=== PATIENT | female | born 1935 | race Caucasian/White ===

== ENCOUNTER 2017-12-09 18:13 | Emergency (ER) | payer OTHER ==
[~2017-12-09] VITALS: Ht 165.1 cm; Wt 83.5 kg
[~2017-12-09 18:13] MED LIST: ASPI81EC98 PO; ATEN50TA2 PO; FAMO-90 PO; FLUT0.0548 NS; FURO-570 PO; ISOS10TA9 PO; LEVO100P PO; MONT10TA35 PO; PHEN100C4 PO; POTA8TER12 PO; SIMV20TA1 PO; VALS160T2 PO
[2017-12-09 18:29] VITALS: BP 161/77
--- NOTE | 2017-12-09 19:27 | NUR ---
PT TAKEN TO BED 1
--- NOTE | 2017-12-09 19:30 | NUR ---
PATIENT PRESENTS TO ED WITH ABD PAIN . PT STATES I HAVE PAIN ON MY RIGHT SIDE. DENIES N/V/D; SKIN IS PINK/WARM/DRY; AAOX4 WITH EVEN AND STEADY GAIT; LUNGS CLEAR BL; HR EVEN AND REGULAR; PT DENIES ANY FEVER, CP, SOB, OR COUGH AT THIS TIME; PATIENT STATES PAIN OF 5/10 AT THIS TIME; VSS; PATIENT POSITIONED FOR COMFORT; HOB ELEVATED; BEDRAILS UP X2; BED DOWN. ER MD MADE AWARE OF PT STATUS.
[2017-12-09 20:34] LABS: BASOPHILS # (AUTO) 0.1 K/uL (0.00-0.22); BASOPHILS % (AUTO) 1.9 % (0.0-2.0); EOSINOPHILS # (AUTO) 0.3 K/uL (0-0.4); EOSINOPHILS % (AUTO) 4.6 % (0.0-4.0); HEMATOCRIT 35.3 % (36-48); LYMPHOCYTES # (AUTO) 2.2 K/uL (2.5-16.5); LYMPHOCYTES % (AUTO) 30.3 % (20.5-51.1); MEAN CORPUSCULAR HEMOGLOBIN 31 pg (27-31); MEAN CORPUSCULAR HGB CONC 34 g/dL (33-37); MEAN CORPUSCULAR VOLUME 91 fL (80-94); MONOCYTES # (AUTO) 0.6 K/uL (0.8-1.0); MONOCYTES % (AUTO) 7.9 % (1.7-9.3); NEUTROPHILS # (AUTO) 3.9 K/uL (1.8-7.7); NEUTROPHILS % (AUTO) 55.3 % (42.2-75.2); PLATELET COUNT (AUTO) 236 K/uL (140-450); RED BLOOD CELL COUNT(AUTO) 3.89 MIL/uL (4.20-5.40); RED CELL DISTRIBUTION WIDTH 12.7 % (11.6-13.7); WHITE BLOOD COUNT (AUTO) 7.1 K/uL (4.8-10.8)
[2017-12-09 20:36] LABS: APPEARANCE,URINE CLEAR (CLEAR); BILIRUBIN,URINE NEGATIVE (NEGATIVE); BLOOD, URINE NEGATIVE (NEGATIVE); COLOR,URINE YELLOW (YELLOW); LEUKOCYTE ESTERASE ,URINE 1+ (NEGATIVE); NITRITE, URINE NEGATIVE (NEGATIVE); UGLUCOSE NEGATIVE (NEGATIVE)
[2017-12-09 20:46] LABS: RBC,URINE 0-5 (RARE) /HPF (0-5)
[2017-12-09 20:49] LABS: ANION GAP 15.2 (8-16); CARBON DIOXIDE 28.7 mmol/L (21-32); CHLORIDE 102 mmol/L (98-107); CREATININE 1.4 mg/dL (0.6-1.3); GLUCOSE 96 mg/dL (74-106); POTASSIUM 3.9 mmol/L (3.5-5.1); SODIUM SERUM 142 mmol/L (136-145); UREA NITROGEN, BLOOD 37 mg/dL (7-18)
[2017-12-09 20:57] LABS: ALBUMIN 4.2 g/dL (3.4-5.0); ASPARTATE AMINOTRANSFERASE 17 U/L (15-37); LIPASE 366 U/L (73-393); TOTAL BILIRUBIN 0.3 mg/dL (0.0-1.0)
[2017-12-09] MEDS ORDERED: KETOROLAC 60 MG/2 ML VIAL IM ONE (21:45)
[2017-12-09 22:05] VITALS: BP 145/92
--- NOTE | 2017-12-09 22:05 | NUR ---
Patient discharged with v/s stable. Written and verbal after care instructions given and explained. Patient alert, oriented and verbalized understanding of instructions. Ambulatory with steady gait. All questions addressed prior to discharge. ID band removed. Patient advised to follow up with PMD. Rx of CIPRO 500MG AND MOTRIN 800MG given. Patient educated on indication of medication including possible reaction and side effects. Opportunity to ask questions provided and answered.
== END 2017-12-09 22:05 | disposition home or self-care (01) ==
LOC: MED 18:13
DX: N39.0 Urinary tract infection, site not specified (principal); I11.0 Hypertensive heart disease with heart failure; I50.9 Heart failure, unspecified; Z85.841 Personal history of malignant neoplasm of brain; Z88.5 Allergy status to narcotic agent
CPT/HCPCS: 36415; 74176; 80053; 81001; 83690; 85025; 87086; 96372; 99285; J1885

== ENCOUNTER 2018-04-04 23:44 | Emergency (ER) | payer OTHER ==
[~2018-04-04] VITALS: Ht 160 cm; Wt 85.7 kg
--- NOTE | 2018-04-04 23:47 | NUR ---
Patient transferred to bed 4 via personal wheelchair by family. RN evaluating patient at bedside.
--- NOTE | 2018-04-04 23:50 | NUR ---
PATIENT PRESENTS TO ED WITH ABDOMINAL PAIN X1 DAY. PT STATES N/V/D; SKIN IS PINK/WARM/DRY; AAOX3 WITH EVEN AND STEADY GAIT; LUNGS CLEAR BL; HR EVEN AND REGULAR; PT DENIES ANY FEVER, SOB, OR COUGH AT THIS TIME; PATIENT STATES PAIN OF 7/10 AT THIS TIME; VSS; PATIENT POSITIONED FOR COMFORT; HOB ELEVATED; BEDRAILS UP X1; BED DOWN. ER MD MADE AWARE OF PT STATUS.
[2018-04-04 23:58] VITALS: BP 149/58
--- NOTE | 2018-04-04 23:58 | NUR ---
Dr. Brown evaluating patient at bedside.
[2018-04-05] MEDS ORDERED: ONDANSETRON 4 MG/2 ML VIAL IVP ONE (00:05)
[2018-04-05] MEDS ORDERED: NACL 0.9% 1,000 ML IV ONE (00:05)
[2018-04-05] MEDS ORDERED: HYDR10TA1 PO (00:13)
[2018-04-05] MEDS ORDERED: CARV6.25 PO (00:13)
[2018-04-05] MEDS ORDERED: TRI48 PO (00:13)
[2018-04-05] MEDS ORDERED: ACET-2619 PO (00:13)
[2018-04-05] MEDS ORDERED: AMLO5TAB PO (00:13)
[2018-04-05 00:24] LABS: HEMATOCRIT 35.3 % (36-48); HEMOGLOBIN 12.3 g/dL (12.0-16.0); MEAN CORPUSCULAR HEMOGLOBIN 31 pg (27-31); MEAN CORPUSCULAR HGB CONC 35 g/dL (33-37); MEAN CORPUSCULAR VOLUME 88.4 fL (80-94); PLATELET COUNT (AUTO) 209 K/uL (140-450); RED BLOOD CELL COUNT(AUTO) 3.99 MIL/uL (4.20-5.40); RED CELL DISTRIBUTION WIDTH 13.3 % (11.6-13.7); WHITE BLOOD COUNT (AUTO) 7.6 K/uL (4.8-10.8)
[2018-04-05 00:32] LABS: ANION GAP 10.6 (8-16); CARBON DIOXIDE 29.4 mmol/L (21-32); CHLORIDE 97 mmol/L (98-107); CREATININE 1.3 mg/dL (0.6-1.3); GLUCOSE 99 mg/dL (74-106); SODIUM SERUM 133 mmol/L (136-145); UREA NITROGEN, BLOOD 27 mg/dL (7-18)
[2018-04-05 00:38] LABS: EOSINOPHILS % (MANUAL) 2 % (0-4); LYMPHOCYTES % (MANUAL) 9 % (20-46); MONOCYTES % (MANUAL) 10 % (5-12)
[2018-04-05 00:39] LABS: ASPARTATE AMINOTRANSFERASE 16 U/L (15-37); LIPASE 343 U/L (73-393); TOTAL BILIRUBIN 0.4 mg/dL (0.0-1.0)
[2018-04-05 00:52] LABS: APPEARANCE,URINE CLEAR (CLEAR); BILIRUBIN,URINE NEGATIVE (NEGATIVE); BLOOD, URINE 2+ (NEGATIVE); COLOR,URINE YELLOW (YELLOW); LEUKOCYTE ESTERASE ,URINE NEGATIVE (NEGATIVE); NITRITE, URINE NEGATIVE (NEGATIVE); PH,URINE 5.5 (5.0-9.0); UGLUCOSE NEGATIVE (NEGATIVE)
--- NOTE | 2018-04-05 00:54 | NUR ---
Patient taken to CT scan via gurney by marquita. Accompanied by family.
[2018-04-05 01:06] LABS: RBC,URINE 3-10 (FEW) /HPF (0-5); WBC,URINE 0-5 (RARE) /HPF (0-5)
[2018-04-05 03:20] VITALS: BP 137/63
== END 2018-04-05 03:19 | disposition home or self-care (01) ==
LOC: MED 23:44
DX: A08.4 Viral intestinal infection, unspecified (principal); E87.6 Hypokalemia; I11.0 Hypertensive heart disease with heart failure; I50.9 Heart failure, unspecified; Z79.899 Other long term (current) drug therapy; Z88.6 Allergy status to analgesic agent
CPT/HCPCS: 36415; 74176; 80053; 81001; 83605; 83690; 85025; 87040; 96361; 96374; 99285; J2405; J7030

== ENCOUNTER 2018-04-11 16:28 | Inpatient (IN) | payer OTHER ==
[~2018-04-11] VITALS: Ht 157.5 cm; Wt 86.2 kg
[~2018-04-11 16:28] MED LIST changes: +ACET-2619 PO; +AMLO5TAB PO; +CARV6.25 PO; +HYDR10TA1 PO; +TRI48 PO
[2018-04-11 16:42] VITALS: BP 141/76
--- NOTE | 2018-04-11 16:50 | NUR ---
PATIENT ASSISTED TO BED 3.
--- NOTE | 2018-04-11 16:58 | NUR ---
PT BIB FAMILY FOR C/O N/V FOR TWO WEEKS. WAS SEEN HERE TWO WEEKS AGO FOR SAME THING AND DC'D FOR VIRAL GASTROENTERITIS. PT REPORTS SYMPTOMS HAVE NOT SUBSIDED, CONTINUES TO HAVE N/V AND PERIODIC DIARRHEA. DENIES SOB, CP OR DIZZINESS. PT PLACED ON ALL MONITORS, VSS. NAD NOTED/STATED OTHERWISE. PENDING MD ROCK
[2018-04-11] MEDS ORDERED: NACL 0.9% 1,000 ML IV ONE (17:40)
[2018-04-11] MEDS ORDERED: ONDANSETRON 4 MG/2 ML VIAL IVP ONE (17:40)
[2018-04-11 18:04] LABS: BASOPHILS % (AUTO) 0.7 % (0.0-2.0); EOSINOPHILS # (AUTO) 0.4 K/uL (0-0.4); EOSINOPHILS % (AUTO) 6.2 % (0.0-4.0); HEMATOCRIT 32.1 % (36-48); HEMOGLOBIN 10.9 g/dL (12.0-16.0); LYMPHOCYTES # (AUTO) 1.6 K/uL (2.5-16.5); LYMPHOCYTES % (AUTO) 23.1 % (20.5-51.1); MEAN CORPUSCULAR HEMOGLOBIN 30 pg (27-31); MEAN CORPUSCULAR HGB CONC 34 g/dL (33-37); MEAN CORPUSCULAR VOLUME 89.6 fL (80-94); MONOCYTES # (AUTO) 0.7 K/uL (0.8-1.0); MONOCYTES % (AUTO) 10.9 % (1.7-9.3); NEUTROPHILS % (AUTO) 59.1 % (42.2-75.2); PLATELET COUNT (AUTO) 248 K/uL (140-450); RED BLOOD CELL COUNT(AUTO) 3.59 MIL/uL (4.20-5.40); RED CELL DISTRIBUTION WIDTH 13.2 % (11.6-13.7); WHITE BLOOD COUNT (AUTO) 6.8 K/uL (4.8-10.8)
[2018-04-11 18:27] LABS: ALBUMIN 3.7 g/dL (3.4-5.0); ANION GAP 9.9 (8-16); ASPARTATE AMINOTRANSFERASE 18 U/L (15-37); CARBON DIOXIDE 28.9 mmol/L (21-32); CHLORIDE 89 mmol/L (98-107); GLUCOSE 101 mg/dL (74-106); POTASSIUM 4.8 mmol/L (3.5-5.1); TOTAL BILIRUBIN 0.3 mg/dL (0.0-1.0); UREA NITROGEN, BLOOD 16 mg/dL (7-18)
[2018-04-11 18:28] LABS: SODIUM SERUM 125 mmol/L (136-145)
--- NOTE | 2018-04-11 18:46 | NUR ---
Patient appears to be resting comfortably in bed. Vital Signs within normal limits. Respirations even and unlabored.
[2018-04-11] MEDS ORDERED: ONDANSETRON 4 MG/2 ML VIAL IM/IVP PRN (18:50)
[2018-04-11] MEDS ORDERED: LORazepam 2 MG/ML VIAL IM/IVP PRN (18:50)
[2018-04-11] MEDS ORDERED: ZOLPIDEM 5 MG TAB PO PRN (18:50)
[2018-04-11] MEDS ORDERED: DOCUSATE SODIUM 100 MG GELCAP PO PRN (18:50)
[2018-04-11] MEDS ORDERED: ACETAMINOPHEN 325 MG TAB PO PRN (18:50)
[2018-04-11] MEDS ORDERED: NAPROXEN 500 MG TAB PO PRN (19:00)
[2018-04-11] MEDS ORDERED: traMADol 50 MG TAB PO PRN (19:00)
--- NOTE | 2018-04-11 19:12 | NUR ---
RECEIVED REPORT FROM AM SHIFT, PT IS LAYING IN BED, FAMILY AT BEDSIDE, VSS, WILL CONTINUE TO MONITOR, PER REPORT WAITING FOR BED PLACEMENT ON FLOOR.
--- NOTE | 2018-04-11 19:50 | NUR ---
PT ARRIVED VIA GURNEY TO UNIT. RECEIVED REPORT STEAMBOAT INSPECTOR FOR CONTINUITY OF CARE. PT IS A/OX4, ON 2L O2 VIA NASAL CANNULA. PT IS ABLE TO MAKE NEEDS KNOWN, ABLE TO FOLLOW COMMANDS. RESPIRATIONS EVEN AND UNLABORED AT THE MOMENT. PT SKIN IS INTACT. PT HAS 22G IV TO RIGHT HAND, ASYMPTOMATIC, INTACT AND PATENT. PT AMBULATES WITH WALKER BUT IS VERY WEAK AT THE MOMENT AND GAIT IS UNSTEADY. DISCUSSED PLAN OF CARE WITH PT, PT VERBALIZED UNDERSTANDING. OBTAINED MRSA SWAB AND SENT TO LAB. VITAL SIGNS WITHIN NORMAL LIMITS. PT STABLE, NO SIGNS OF DISTRESS NOTED AT THIS TIME. BED IN LOWEST POSITION, BED ALARM ON. CALL LIGHT WITHIN REACH, WILL CONTINUE TO MONITOR.
--- NOTE | 2018-04-11 19:50 | NUR ---
Patient will be admitted to care of DR. GUTIERREZ. Admited to TELE. Will go to room 119-B. Belongings list completed. Report to KATE.
[2018-04-11 19:53] LABS: FREE T4 (FREE THYROXINE) 0.58 ng/dL (0.76-1.46); MAGNESIUM 2.4 mg/dL (1.8-2.4); PHOSPHORUS 3.7 mg/dL (2.5-4.9); THYROID STIMULATING HORMONE 1.33 uIU/mL (0.34-3.74)
[2018-04-11 20:10] LABS: APPEARANCE,URINE CLEAR (CLEAR); BILIRUBIN,URINE NEGATIVE (NEGATIVE); BLOOD, URINE NEGATIVE (NEGATIVE); COLOR,URINE YELLOW (YELLOW); LEUKOCYTE ESTERASE ,URINE NEGATIVE (NEGATIVE); NITRITE, URINE NEGATIVE (NEGATIVE); PH,URINE 8.5 (5.0-9.0); UGLUCOSE NEGATIVE (NEGATIVE)
[2018-04-11] MEDS: NACL 0.9% 1,000 ML IV SCH (20:10)
[2018-04-11 21:00] VITALS: BP 151/56
[2018-04-11] MEDS: SIMVASTATIN 20 MG TAB PO SCH (21:00)
[2018-04-11] MEDS: ISOSORBIDE DINITRATE 10 MG TAB PO SCH (21:00)
[2018-04-11] MEDS: FAMOTIDINE 20 MG TAB PO SCH (21:00)
[2018-04-11] MEDS ORDERED: DICYCLOMINE HCL LIQUID 20 MG, ALUMINUM HYD/MAG/SIMETHICONE 30 ML, LIDOCAINE VISCOUS 2% ... PO SCH ×3 (21:30)
[2018-04-11] MEDS: ALBUTEROL SULFATE/IPRATROPIU 3 ML SOL IH PRN (21:53)
[2018-04-11] MEDS ORDERED: CARVEDILOL 6.25 MG TAB PO SCH ×2 (22:00)
[2018-04-11] MEDS ORDERED: LEVOFLOXACIN 500 MG/D5W PREMIX 100 ML IV SCH (22:00)
[2018-04-11] MEDS ORDERED: LIDOCAINE VISCOUS 2% 20 ML UDC ONE (22:12)
[2018-04-11] MEDS ORDERED: ALUMINUM HYD/MAG/SIMETHICONE 30 ML UDC ONE ×2 (22:12→22:16)
[2018-04-11] MEDS ORDERED: DICYCLOMINE HCL LIQUID 10 MG/5 ML UDC ONE (22:16)
--- NOTE | 2018-04-11 22:35 | NUR ---
PT STATES SHE TOOK HER NIGHT TIME MEDICATIONS ALREADY AND DOES NOT NEED THEM NOW. STARTED INFUSING LEVAQUIN ORDERED, PT TOLERATING WELL.
[2018-04-11] MEDS ORDERED: metroNIDAZOLE 500 MG/NS PREMIX 100 ML IV SCH (23:00)
[2018-04-12] VITALS: BP 129/52
--- NOTE | 2018-04-12 | NUR ---
LEVAQUIN INFUSION DONE, PT TOLERATED WELL. FLAGYL NOW INFUSING, NO SIGNS OF ALLERGY NOTED. VITAL SIGNS WITHIN NORMAL LIMITS. PT STABLE, NO SIGNS OF DISTRESS NOTED AT THIS TIME. BED IN LOWEST POSITION, BED ALARM ON. CALL LIGHT WITHIN REACH, WILL CONTINUE TO MONITOR.
--- NOTE | 2018-04-12 02:00 | NUR ---
PT HAD BM, OBTAINED SAMPLE AND SENT TO LAB ORDERED. STOOL IS BROWN AND WATERY.
[2018-04-12 04:00] VITALS: BP 131/50
--- NOTE | 2018-04-12 04:00 | NUR ---
PT REMOVED IV. STARTED NEW 22G IV TO RIGHT HAND. PT TOLERATED WELL. VITAL SIGNS WITHIN NORMAL LIMITS. PT STABLE, NO SIGNS OF DISTRESS NOTED AT THIS TIME. BED IN LOWEST POSITION, BED ALARM ON. CALL LIGHT WITHIN REACH, WILL CONTINUE TO MONITOR.
[2018-04-12] MEDS: metroNIDAZOLE 500 MG/NS PREMIX 100 ML IV SCH ×3 (05:44→21:22)
[2018-04-12 05:57] LABS: BASOPHILS % (AUTO) 0.5 % (0.0-2.0); EOSINOPHILS # (AUTO) 0.4 K/uL (0-0.4); EOSINOPHILS % (AUTO) 5.5 % (0.0-4.0); HEMATOCRIT 31.9 % (36-48); LYMPHOCYTES # (AUTO) 1.4 K/uL (2.5-16.5); LYMPHOCYTES % (AUTO) 18.5 % (20.5-51.1); MEAN CORPUSCULAR HEMOGLOBIN 31 pg (27-31); MEAN CORPUSCULAR HGB CONC 34 g/dL (33-37); MEAN CORPUSCULAR VOLUME 90.5 fL (80-94); MONOCYTES # (AUTO) 0.5 K/uL (0.8-1.0); MONOCYTES % (AUTO) 7.2 % (1.7-9.3); NEUTROPHILS # (AUTO) 5.1 K/uL (1.8-7.7); NEUTROPHILS % (AUTO) 68.3 % (42.2-75.2); PLATELET COUNT (AUTO) 245 K/uL (140-450); RED BLOOD CELL COUNT(AUTO) 3.53 MIL/uL (4.20-5.40); RED CELL DISTRIBUTION WIDTH 13.1 % (11.6-13.7); WHITE BLOOD COUNT (AUTO) 7.5 K/uL (4.8-10.8)
[2018-04-12] MEDS: LEVOTHYROXINE 0.05 MG TAB PO SCH (06:01)
--- NOTE | 2018-04-12 06:01 | NUR ---
ADMINISTERED SCHEDULED MEDICATION, PT TOLERATED WELL. NO PROBLEMS NOTED WITH SWALLOWING.
[2018-04-12 06:34] LABS: ANION GAP 8.6 (8-16); CARBON DIOXIDE 29.5 mmol/L (21-32); CHLORIDE 91 mmol/L (98-107); GLUCOSE 96 mg/dL (74-106); POTASSIUM 4.1 mmol/L (3.5-5.1); SODIUM SERUM 125 mmol/L (136-145); UREA NITROGEN, BLOOD 13 mg/dL (7-18)
[2018-04-12 07:19] LABS: CHOL/HDL RATIO 8.3 (1-4.5)
--- NOTE | 2018-04-12 07:32 | NUR ---
ENDORSED PT TO DAY SHIFT RN FOR CONTINUITY OF CARE. PT IN STABLE CONDITION.
--- NOTE | 2018-04-12 07:34 | NUR ---
RECEIVED BEDSIDE REPORT FROM VEGETABLE TIER NURSE. PATIENT IS AWAKE, ALERT AND ORIENTEDX3. SHE HAS MOMENTS OF CONFUSION. VEGETABLE TIER NURSE SAID PER FAMILY SHE IS BECOMING MORE FORGETFUL. SHE AMBULATED TO THE RESTROOM, PATIENT IS STUBBORN, WE ASKED HER TO USE BEDPAN BECAUSE SHE IS VERY UNSTEADY BUT SHE REFUSED. PATIENT AMBULATED, SHE IS SHAKING WHEN SHE WALKS AND USES FURNITURE A AMBULATORY AID. PATIENT NEEDS TO AMBULATE WITH ASSISTANCE. PATIENT BACK IN BED. BED IN LOW. BED ALARM IS ON. FALL PRECAUTIONS IN PLACE. WALKER AT BEDSIDE. PATIENT DOESNT USE IT BECAUSE IT DOESNT FIT IN THE RESTROOM. SKIN IS INTACT. IV ON R HAND 22G INFUSING NS AT 60. IV ON L HAND 22G SALINE LOCK. BOTH IVS ARE CLEAN, DRY AND INTACT. TELE MONITOR IN PLACE. BED IN LOW POSITION. WILL CONTINUE TO MONITOR THE PATIENT.
[2018-04-12] MEDS ORDERED: SODIUM CHLORIDE 1 GM TAB PO SCH (07:39)
[2018-04-12 08:00] VITALS: BP 125/52
[2018-04-12 08:33] LABS: T4 (THYROXINE) 3.8 ug/dL (4.5-12.0)
[2018-04-12] MEDS: ASPIRIN 81 MG TAB.CHEW PO SCH (08:44)
[2018-04-12] MEDS: amLODIPine 5 MG TAB PO SCH (08:45)
[2018-04-12] MEDS: MULTIVITAMIN/MINERALS 1 TAB PO SCH (08:46)
[2018-04-12] MEDS: VALSARTAN 80 MG TAB PO SCH (08:46)
[2018-04-12] MEDS: LACTOBACILLUS RHAMNOSUS GG 1 EACH CAP PO SCH ×2 (08:46→17:10)
[2018-04-12] MEDS: CARVEDILOL 6.25 MG TAB PO SCH ×2 (08:47→20:30)
[2018-04-12] MEDS: FENOFIBRATE 48 MG TAB PO SCH (08:47)
[2018-04-12] MEDS: PHENYTOIN 100 MG CAPER PO SCH ×2 (08:48→20:29)
[2018-04-12] MEDS: HYDROCORTISONE 10 MG TAB PO SCH (08:48)
[2018-04-12] MEDS: KETOROLAC 30 MG/ML VIAL IVP PRN (08:48)
[2018-04-12] MEDS: FUROSEMIDE 40 MG/4 ML VIAL IVP SCH (08:49)
[2018-04-12] MEDS: POTASSIUM CHLORIDE 8 MEQ TABER PO SCH (08:49)
--- NOTE | 2018-04-12 08:52 | NUR ---
PATIENT HAS BEEN SCREENED AND CATEGORIZED HIGH NUTRITION RISK. PATIENT WILL BE SEEN WITHIN 1-2 DAYS OF ADMISSION. 04/12/18 04/13/[address]
--- NOTE | 2018-04-12 08:59 | NUR ---
ADMINISTERED MEDS. PATIENT TOLERATED WELL. DID NOT ADMINISTER AMLODIPINE OR COREG D/T HR OF 59. HOLD PER PARAMETERS. ADMINISTERED PRN TORADOL. PATIENT COMPLAINS OF 10/10 PAIN. WILL REASSESS PAIN. IV IS CLEAN, DRY AND INTACT. WILL CONTINUE TO MONITOR THE PATIENT.
[2018-04-12] MEDS ORDERED: FUROSEMIDE 40 MG TAB PO SCH (09:00)
[2018-04-12] MEDS ORDERED: ATENOLOL 50 MG TAB PO SCH (09:00)
[2018-04-12] MEDS: NACL 0.9% 1,000 ML IV SCH ×2 (10:29→22:36)
[2018-04-12] MEDS: FLUTICASONE NASAL 50 MCG/ACTUATION 16 GM BTL NS SCH (10:30)
--- NOTE | 2018-04-12 11:00 | NUR ---
SON AT BEDSIDE. ANSWERED ALL QUESTIONS AT THIS TIME. DR CAMPBELL IN TO SEE PATIENT AND SON. SHE ALSO ANSWERED ALL QUESTIONS AT THIS TIME. NO COMPLAINTS. WILL CONTINUE TO MONITOR THE PATIENT.
[2018-04-12] MEDS: ALBUTEROL SULFATE/IPRATROPIU 3 ML SOL IH PRN (11:27)
--- NOTE | 2018-04-12 11:27 | NUR ---
SATURATION 84% ON ROOM AIR POST HHN THERAPY PLACED ON SUPPLEMENTAL OXYGEN AT 3 LPM VIA TN MECHANICAL CAD DESIGNER TO MONITOR AND ADVISE JAZMÍN Addendum: 04/12/18 at 1155 by Alejandro Patel RT SATURATION 96% ON SUPPLEMENTAL OXYGEN AT 3 LPM VIA NC JAZMÍN NOTIFIED
--- NOTE | 2018-04-12 11:28 | NUR ---
PER VERBAL CONVERSATION WITH SON PRICILA (ART) MOTHER WITH PAST HX OF SLEEP APNEA WHICH WAS DETERMINED BY SLEEP STUDY SON STATES THAT MOTHER USES CPAP AT HOME DOES NOT KNOW THE PRESSURE THAT WAS ORDERED BY CALLED DR. ESE CAMPBELL [phone] TO DISCUSS FOREMENTIONED AND ROOM AIR SATURATION NEW ORDERS: MAINTAIN O2 GREATER THAN 92%
[2018-04-12 12:00] VITALS: BP 138/63
--- NOTE | 2018-04-12 12:00 | NUR ---
PATIENT WORKED WITH PT. AMBULATION IS NOT STEADY. PT RECOMMENDS PATIENT TO GO HOME WITH HOME HEALTH. WILL TELL
--- NOTE | 2018-04-12 13:00 | NUR ---
ADMINISTERED MEDS. PATIENT TOLERATED WELL. IV IS CLEAN, DRY AND INTACT. WILL CONTINUE TO MONITOR PATIENT
--- NOTE | 2018-04-12 14:01 | NUR ---
CM NOTE INITIAL REVIEW FAXED TO [facility] [phone] NEFTALY BARBER PH# [phone]
--- NOTE | 2018-04-12 14:16 | NUR ---
PATIENT IS SLEEPING. NO SIGNS OF DISTRESS ON 3L NC. BED IN LOW POSITION. WILL CONTINUE TO MONITOR THE PATIENT.
--- NOTE | 2018-04-12 14:35 | NUR ---
PRICILA (SON) BROUGHT IN MOTHER'S CPAP LUMBER PILER OBSERVED END PRESSURE AT [id number] FOREMENTIONED PRESSURE GIVEN TO DR IRIS CAMPBELL
--- NOTE | 2018-04-12 15:37 | NUR ---
04/12/18 RD INITIAL ASSESSMENT COMPLETED PLEASE REFER TO NUTRITION ASSESSMENT UNDER CARE ACTIVITY FOR ESTIMATED NUTRITIONAL NEEDS. 1. CONTINUE CLEAR LIQUID DIET TOLERATED 2. RECOMMEND ENSURE CLEAR BID 3. RD TO FOLLOW-UP 2-3 DAYS, HIGH RISK LUIS HODGE RD
[2018-04-12 16:00] VITALS: BP 126/36
--- NOTE | 2018-04-12 16:00 | NUR ---
PATIENT AMBULATED TO THE RESTROOM W ASSIST. PATIENT BACK TO BED. DAUGHTER AT BEDSIDE. WILL CONTINUE TO MONITOR THE PATIENT. NO SIGNS OF DISTRESS ON 2L NC.
[2018-04-12] MEDS: MONTELUKAST SODIUM 10 MG TAB PO SCH (17:10)
--- NOTE | 2018-04-12 17:12 | NUR ---
ADMINISTERED MEDS. PATIENT TOLERATED WELL. WILL CONTINUE TO MONITOR THE PATIENT. DAUGHTER AT BEDSIDE.
--- NOTE | 2018-04-12 17:15 | NUR ---
PLACED AT BEDSIDE FOR NOC USE: BIPAP VISION, BIPAP TUBING,BACTERIAL FILTER, LARGE FACIAL MASK, NEBULIZER ADRIAN, MASIMO RADICAL-7 CONTINUOS PULSE OXIMETER
--- NOTE | 2018-04-12 19:10 | NUR ---
GAVE BEDSIDE REPORT TO VEHICLE BODY MAKER NURSE. PATIENT IN STABLE CONDITION
--- NOTE | 2018-04-12 19:30 | NUR ---
RECEIVED REPORT AT BEDSIDE FOR CONTINUITY OF CARE. PT AAOX4. PT IV R HAND 22G NS 80ML/HR. ARMENIAN SPEAKING. NO SOB NO S/S OF DISTRESS. ON NC 2L O2. BED LOWERED CALL LIGHT WITHIN REACH. PT IS FALL RISK. BED LOWERED CALL LIGHT WITHIN REACH WILL CONTINUE TO MONITOR.
[2018-04-12 20:00] VITALS: BP 147/59
[2018-04-12] MEDS: ISOSORBIDE DINITRATE 10 MG TAB PO SCH (20:29)
[2018-04-12] MEDS: SIMVASTATIN 20 MG TAB PO SCH (20:30)
[2018-04-12] MEDS: FAMOTIDINE 20 MG TAB PO SCH (20:30)
[2018-04-12] MEDS ORDERED: SODIUM FERRIC GLUCONATE 12.5 MG/ML AMP IV ONE (20:52)
[2018-04-12] MEDS ORDERED: LEVOFLOXACIN 250 MG/D5 PREMIX 50 ML IV SCH (21:00)
[2018-04-12] MEDS ORDERED: SODIUM FERRIC GLUCONATE 125 MG in NACL 0.9% 100 ML IV SCH (21:00)
--- NOTE | 2018-04-12 21:10 | NUR ---
PT TOOK MASK OFF FROM CPAP. PT IS REFUSING TO BE PUT ON CPAP. PLACED PT ON NC 2LPM SAT 98 HR 60 RR 18. WILL CONT TO MONITOR PT.
[2018-04-13 01:49] VITALS: BP 146/62
[2018-04-13] MEDS: metroNIDAZOLE 500 MG/NS PREMIX 100 ML IV SCH ×2 (05:25→13:39)
[2018-04-13] MEDS: LEVOTHYROXINE 0.05 MG TAB PO SCH (05:39)
[2018-04-13 06:18] VITALS: BP 165/81
[2018-04-13 06:42] LABS: BASOPHILS # (AUTO) 0.1 K/uL (0.00-0.22); BASOPHILS % (AUTO) 0.6 % (0.0-2.0); EOSINOPHILS # (AUTO) 0.5 K/uL (0-0.4); EOSINOPHILS % (AUTO) 4.7 % (0.0-4.0); HEMATOCRIT 31.2 % (36-48); HEMOGLOBIN 10.7 g/dL (12.0-16.0); LYMPHOCYTES # (AUTO) 1.3 K/uL (2.5-16.5); LYMPHOCYTES % (AUTO) 13.2 % (20.5-51.1); MEAN CORPUSCULAR HEMOGLOBIN 31 pg (27-31); MEAN CORPUSCULAR HGB CONC 35 g/dL (33-37); MEAN CORPUSCULAR VOLUME 89.7 fL (80-94); MONOCYTES # (AUTO) 1.1 K/uL (0.8-1.0); NEUTROPHILS # (AUTO) 6.9 K/uL (1.8-7.7); NEUTROPHILS % (AUTO) 70.5 % (42.2-75.2); PLATELET COUNT (AUTO) 260 K/uL (140-450); RED BLOOD CELL COUNT(AUTO) 3.47 MIL/uL (4.20-5.40); RED CELL DISTRIBUTION WIDTH 13.2 % (11.6-13.7); WHITE BLOOD COUNT (AUTO) 9.8 K/uL (4.8-10.8)
[2018-04-13 06:57] LABS: ANION GAP 9.3 (8-16); CARBON DIOXIDE 27.6 mmol/L (21-32); CHLORIDE 91 mmol/L (98-107); CREATININE 1.1 mg/dL (0.6-1.3); GLUCOSE 104 mg/dL (74-106); POTASSIUM 3.9 mmol/L (3.5-5.1); UREA NITROGEN, BLOOD 10 mg/dL (7-18)
[2018-04-13 07:03] LABS: PHOSPHORUS 3.2 mg/dL (2.5-4.9)
[2018-04-13 07:15] LABS: SODIUM SERUM 124 mmol/L (136-145)
--- NOTE | 2018-04-13 07:29 | NUR ---
ENDORSED REPORT TO MORNING NURSE AT BEDSIDE FOR CONTINUITY OF CARE.
--- NOTE | 2018-04-13 07:30 | NUR ---
GAVE BEDSIDE REPORT TO RETAIL MARKETING MANAGER NURSE. PATIENT IS AWAKE, ALERT AND ORIENTEDX3. MOMENTS OF CONFUSION. SHE IS ON 2L NC, NO SIGNS OF DISTRESS. PATIENT WANTS TO GO TO THE RESTROOM. TOLD PATIENT SHE IS TOO UNSTEADY. STILL REFUSED TO USE BEDPAN. HELPED PATIENT AMBULATE TO THE RESTROOM. SHE IS UNSTEADY AND WEAK. SKIN IS INTACT. IV ON R HAND 22G INFUSING FLAGYL AT 100ML/HR. IV IS CLEAN, DRY AND INTACT. BED IN LOW POSITION. CALL LIGHT WITHIN REACH. RETAIL MARKETING MANAGER SAID SHE REFUSED CPAP MACHINE BECAUSE SHE STATES SHE CANT BREATHE.
[2018-04-13 07:59] LABS: FERRITIN 238 ng/mL (15-150); FOLIC ACID > 20.00 ng/mL (>3.0)
[2018-04-13 08:00] VITALS: BP 130/43
[2018-04-13] MEDS: FLUTICASONE NASAL 50 MCG/ACTUATION 16 GM BTL NS SCH (08:53)
[2018-04-13] MEDS: LACTOBACILLUS RHAMNOSUS GG 1 EACH CAP PO SCH (08:53)
[2018-04-13] MEDS: POTASSIUM CHLORIDE 8 MEQ TABER PO SCH (08:53)
[2018-04-13] MEDS: ASCORBIC ACID 500 MG TAB PO SCH (08:53)
[2018-04-13] MEDS: MULTIVITAMIN/MINERALS 1 TAB PO SCH (08:54)
[2018-04-13] MEDS: CARVEDILOL 6.25 MG TAB PO SCH ×2 (08:54→20:13)
[2018-04-13] MEDS: PHENYTOIN 100 MG CAPER PO SCH ×2 (08:54→20:13)
[2018-04-13] MEDS: HYDROCORTISONE 10 MG TAB PO SCH (08:54)
[2018-04-13] MEDS: FERROUS SULFATE 325 MG TABEC PO SCH (08:54)
[2018-04-13] MEDS: VALSARTAN 80 MG TAB PO SCH (08:55)
[2018-04-13] MEDS: FUROSEMIDE 40 MG/4 ML VIAL IVP SCH (08:55)
[2018-04-13] MEDS: FENOFIBRATE 48 MG TAB PO SCH (08:55)
[2018-04-13] MEDS: amLODIPine 5 MG TAB PO SCH (08:56)
[2018-04-13] MEDS: ASPIRIN 81 MG TAB.CHEW PO SCH (08:56)
[2018-04-13] MEDS: KETOROLAC 30 MG/ML VIAL IVP PRN (09:09)
--- NOTE | 2018-04-13 09:14 | NUR ---
ADMINISTERED MEDS. PATIENT TOLERATED WELL. ADMINISTERED PRN PAIN MED. IV IS CLEAN, DRY AND INTACT. WILL CONTINUE TO MONITOR THE PATIENT
--- NOTE | 2018-04-13 11:00 | NUR ---
PATIENT WITH SON AT BEDSIDE. REQUESTING FOOD FOR MOM SINCE PATIENT REFUSED BREAKFAST. WILL ORDER PATIENT AN EARLY CLEAR LIQ DIET
--- NOTE | 2018-04-13 11:25 | NUR ---
RECEIVED PATIENT ON ROOM AIR, O2 SAT 95%. NO BREATHING TX INDICATED AT THIS TIME. NO RESPIRATORY DISTRESS NOTED AT THIS TIME. WILL CONTINUE TO MONITOR.
[2018-04-13] MEDS: NACL 0.9% 1,000 ML IV SCH ×2 (11:29→23:59)
[2018-04-13 12:00] VITALS: BP 151/59
--- NOTE | 2018-04-13 12:12 | NUR ---
FAXED CONCURRENT REVIEW TO [facility] [phone] NEW [phone] NEW CALLED THIS MORNING ASKING HOW LONG THIS PATIENT WILL BE HERE IN CASE THEY HAVE TO TRANSFER THE PATIENT TO CONTRACTED FACILITY. DR. CAMPBELL SAID THEY ARE HAVING NEPHRO TO SEE THE PATIENT AND ALSO PATIENT WILL NEED CT ABD TODAY. I GAVE NEW THE PHONE FOR DR. CAMPBELL AND DR. Eric GUTIERREZ.
--- NOTE | 2018-04-13 13:49 | NUR ---
ADMINISTERED MEDS. PATIENT TOLERATING WELL. IV IS CLEAN, DRY AND INTACT. HELPED PATIENT AMBULATE TO THE RESTROOM. WILL CONTINUE TO MONITOR THE PATIENT
--- NOTE | 2018-04-13 14:16 | NUR ---
Wet Finisher Wool Note: Olegario Silveira , patient has a c-pap at home that isn't working properly. He stated patient's primary care physician helped patient obtain c-pap. He reported patient obtained c-pap when she had a different health insurance plan ([employer]). He told me he is going to speak with patient's pcp regarding obtaining a new c-pap with patient's current health insurance plan.
[2018-04-13] MEDS ORDERED: COMMUNICATION ORDER MC ONE (14:45)
--- NOTE | 2018-04-13 15:27 | NUR ---
PATIENT WITH FAMILY AT BEDSIDE. NO SIGNS OF DISTRESS. WILL CONTINUE TO MONITOR THE PATIENT
[2018-04-13] MEDS ORDERED: SAMSCA 15 MG PO SCH (15:30)
--- NOTE | 2018-04-13 15:57 | NUR ---
ADMINISTERED MEDS. PATIENT DID NOT LIKE GI COCKTAIL. WILL CONTINUE TO MONITOR THE PATIENT. FAMILY AT BEDSIDE.
[2018-04-13 16:00] VITALS: BP 144/57
[2018-04-13] MEDS ORDERED: LOPERAMIDE 2 MG CAP PO SCH (16:00)
[2018-04-13] MEDS ORDERED: DICYCLOMINE HCL LIQUID 10 MG/5 ML UDC PO SCH (16:00)
[2018-04-13] MEDS ORDERED: LIDOCAINE VISCOUS 2% 20 ML UDC PO SCH (16:00)
[2018-04-13] MEDS ORDERED: ALUMINUM HYD/MAG/SIMETHICONE 30 ML UDC PO SCH (16:00)
[2018-04-13] MEDS: MONTELUKAST SODIUM 10 MG TAB PO SCH (16:17)
--- NOTE | 2018-04-13 18:28 | NUR ---
L AC 20G PLACED BY ER NURSE. CT CAME TO PICK HER UP
--- NOTE | 2018-04-13 19:00 | NUR ---
GAVE BEDSIDE REPORT TO LOGGING RAFTER LABORER NURSE. PATIENT IS IN STABLE CONDITION
--- NOTE | 2018-04-13 19:30 | NUR ---
RECEIVED REPORT FROM DAY SHIFT AT BEDSIDE FOR CONTINUITY OF CARE. PT AAOX4. PT IV NOTED R HAND 22G NS 80ML/HR. IV LAC 20G LOCK. ON 2LNC NO SOB NO S/S OF DISTRESS. BED LOWERED PT IS FALL RISK. BED ALARM ON. PT IS NAUSEA WILL MEDICATE. CALL LIGHT WITHIN REACH WILL CONTINUE TO MEDICATE.
[2018-04-13 20:00] VITALS: BP 137/57
[2018-04-13] MEDS: ISOSORBIDE DINITRATE 10 MG TAB PO SCH (20:12)
[2018-04-13] MEDS: FAMOTIDINE 20 MG TAB PO SCH (20:12)
[2018-04-13] MEDS: SIMVASTATIN 20 MG TAB PO SCH (20:12)
--- NOTE | 2018-04-13 21:00 | NUR ---
ADMINISTERED ZOFRAN AT 1999 PT HAD 1 EPISODE OF VOMIT. PT NAUSEA HAS RESOLVED WILL CONTINUE TO MONITOR.
--- NOTE | 2018-04-13 21:30 | NUR ---
MD CASTELLON AT BEDSIDE SPEAKING TO FAMILY REGARDING RESULTS OF CT ABD W CONTRAST.
--- NOTE | 2018-04-13 22:25 | NUR ---
pt taken off cpap at this time, did not want to wear it, no resp distress or sob noted at this time, Na BENNETT aware, will cont to monitor.
[2018-04-14] VITALS: BP 133/66
--- NOTE | 2018-04-14 02:47 | NUR ---
PT SLEEPING. NO SOB NO S/S OF DISTRESS WILL CONTINUE TO MONITOR.
[2018-04-14 04:00] VITALS: BP 116/54
[2018-04-14] MEDS: LEVOTHYROXINE 0.05 MG TAB PO SCH (05:32)
--- NOTE | 2018-04-14 07:23 | NUR ---
ENDORSED REPORT TO DAYSHIFT NURSE AT BEDSIDE FOR CONTINUITY OF CARE.
[2018-04-14 07:28] LABS: BASOPHILS % (AUTO) 0.5 % (0.0-2.0); EOSINOPHILS # (AUTO) 0.3 K/uL (0-0.4); EOSINOPHILS % (AUTO) 5.1 % (0.0-4.0); HEMATOCRIT 30.2 % (36-48); HEMOGLOBIN 10.2 g/dL (12.0-16.0); LYMPHOCYTES # (AUTO) 1.3 K/uL (2.5-16.5); LYMPHOCYTES % (AUTO) 20.3 % (20.5-51.1); MEAN CORPUSCULAR HEMOGLOBIN 31 pg (27-31); MEAN CORPUSCULAR HGB CONC 34 g/dL (33-37); MONOCYTES # (AUTO) 0.9 K/uL (0.8-1.0); MONOCYTES % (AUTO) 13.4 % (1.7-9.3); NEUTROPHILS # (AUTO) 3.9 K/uL (1.8-7.7); NEUTROPHILS % (AUTO) 60.7 % (42.2-75.2); PLATELET COUNT (AUTO) 222 K/uL (140-450); RED BLOOD CELL COUNT(AUTO) 3.32 MIL/uL (4.20-5.40); RED CELL DISTRIBUTION WIDTH 13.4 % (11.6-13.7); WHITE BLOOD COUNT (AUTO) 6.5 K/uL (4.8-10.8)
--- NOTE | 2018-04-14 07:30 | NUR ---
REPORT RECIEVED FROM SCHOOL TRAFFIC SUPERVISOR NURSE, PT SLEEPING QUIELTY IN NAD, RESP EVNE UNALBORED, DENIES PAIN OR DISCOMFORT, WILL CONTINUE TO MOTNIOR.
[2018-04-14 08:00] VITALS: BP 128/65
[2018-04-14 08:03] LABS: ANION GAP 10.2 (8-16); CARBON DIOXIDE 27.3 mmol/L (21-32); CHLORIDE 96 mmol/L (98-107); CREATININE 1.2 mg/dL (0.6-1.3); GLUCOSE 106 mg/dL (74-106); POTASSIUM 3.5 mmol/L (3.5-5.1); SODIUM SERUM 130 mmol/L (136-145); UREA NITROGEN, BLOOD 8 mg/dL (7-18)
[2018-04-14 08:13] LABS: PHOSPHORUS 3.6 mg/dL (2.5-4.9)
--- NOTE | 2018-04-14 08:46 | NUR ---
FAXED CONCURRENT REVIEW TO [facility] PHYSICIAN [phone] PHONE NEW [phone] I SPOKE WITH NEW AND INFORMED HER OF THE ORDER FOR SNF PLACEMENT. SHE SAID TO TRY, [facility]
[2018-04-14] MEDS ORDERED: LEVOFLOXACIN 250 MG/D5 PREMIX 50 ML IV SCH (09:00)
[2018-04-14] MEDS: PHENYTOIN 100 MG CAPER PO SCH (09:00)
[2018-04-14] MEDS: ASCORBIC ACID 500 MG TAB PO SCH (09:01)
[2018-04-14] MEDS: HYDROCORTISONE 10 MG TAB PO SCH (09:01)
[2018-04-14] MEDS: FERROUS SULFATE 325 MG TABEC PO SCH (09:01)
[2018-04-14] MEDS: MULTIVITAMIN/MINERALS 1 TAB PO SCH (09:02)
[2018-04-14] MEDS: VALSARTAN 80 MG TAB PO SCH (09:02)
[2018-04-14] MEDS: FENOFIBRATE 48 MG TAB PO SCH (09:02)
[2018-04-14] MEDS: amLODIPine 5 MG TAB PO SCH (09:03)
[2018-04-14] MEDS: ASPIRIN 81 MG TAB.CHEW PO SCH (09:03)
--- NOTE | 2018-04-14 09:03 | NUR ---
Wanigan Clerk Note: I called and spoke with patient's son Dave Silveira regarding MD's order for snf placement. He stated he would like to speak with MD regarding patient's current medical condition because he is concern about patient's vomiting. He said he isn't sure at this time if he would like patient to be transfer to snf, he would like to speak with MD first. I told him that I was going to fax inquiries to snfs that are contracted with patient's health insurance plan in case he is in agreement with snf placement after speaking with MD. He verbalized understanding. I informed family preservation caseworker Dottie of above information. I faxed inquires to the following snfs: [facility] , [facility] , [facility] , [facility] , and [facility] .
[2018-04-14] MEDS: CARVEDILOL 6.25 MG TAB PO SCH (09:04)
[2018-04-14] MEDS: FUROSEMIDE 40 MG/4 ML VIAL IVP SCH (09:04)
[2018-04-14] MEDS: FLUTICASONE NASAL 50 MCG/ACTUATION 16 GM BTL NS SCH (09:58)
[2018-04-14] MEDS: POTASSIUM CHLORIDE 8 MEQ TABER PO SCH (09:58)
[2018-04-14 10:31] LABS: TRANSFERRIN 146 mg/dL (200-370)
--- NOTE | 2018-04-14 11:07 | NUR ---
RECEIVED ORDER FOR HOME HEALTH FOR SAFETY EVAL AND PT. I CALLED [facility] AND SPOKE WITH NEW AND FAXED RIN. FOR HOME HEALTH USE, [facility] [phone] OR USE [facility]. OR USE [facility] OR USE [facility], [phone] OR [phone] OR [facility], SHE SAID THE AUTH IS [id number]. SHE SAID TO LET HER KNOW WHICH HOME HEALTH AGREES. Addendum: 04/14/18 at 1115 by Dottie Florentino CM PHONE NEW IS [phone]. AT [facility] PHYSICIAN DEL.
--- NOTE | 2018-04-14 11:20 | NUR ---
PT ASSISTED TO BATHROOM AMBULATES SLOWLY WITH WALKER TO BATHROOM,
[2018-04-14] MEDS ORDERED: LACT10CA1 PO (11:50)
[2018-04-14] MEDS ORDERED: LEVO750T2 PO (11:50)
[2018-04-14 12:00] VITALS: BP 120/69
[2018-04-14] MEDS ORDERED: MECL-322 PO (12:23)
[2018-04-14] MEDS ORDERED: ACET-8386 PO (12:23)
[2018-04-14] MEDS ORDERED: [UNRECOGNIZED DRUG - CODE] PO (12:23)
[2018-04-14] MEDS: NACL 0.9% 1,000 ML IV SCH (12:29)
[2018-04-14] MEDS ORDERED: LEVO250T2 PO (14:13)
--- NOTE | 2018-04-14 14:20 | NUR ---
PER BREE (FUNERAL PROFESSIONAL) HOME HEALTH AGENCY FOR PT HAS NOT BEEN CONFIRMED YET, AWAITING RESPONSE, PT'S SON ANXIOUS TO TAKE PT HOME, EXPLAINED THE REASON FOR DELAY, SON WILL GO TO WORK BUT PT'S DAUGHTER WILL BE HERE SOON AND SHE IS ABLE TO TAKE HER HOME, PT SITTING UP IN CHAIR, DENIES PAIN OR DISCOMFORT, PT WAS ABLE TO EAT BLAND DIET FOR LUNCH WITH N/V, WILL CONTINUE TO MONITOR.
--- NOTE | 2018-04-14 14:31 | NUR ---
Aboriginal Education Worker Coordinator Note: and I met with patient and patient's son Dave at bedside. Patient Cypriot speaking. Dave Turkmen and Cypriot speaking. Per patient, she would like to return home upon discharge, does not want to be transfer to snf. Per Dave, he would also like patient to return home. They are both in agreement with home health services, I verified patient's home address and phone number [address] [place] [place] [address] . He inquired if patient can be transfer to [facility], per case resolution specialist Dottie patient does not meet criteria for [facility], I informed Dave of this. He stated patient has been admitted previously in our hospital with similar symptoms and is planning to take patient to [facility] once patient is home if her symptoms persist or become worse. He stated patient has been at [facility] before and he would like to get feedback from the doctors at [facility] regarding patient's prognosis. I called and spoke with Natalia from [facility] , per Natalia they will not have nursing staff available until next week, she stated she did not know whether it would be early, mid, or late next week. I called [facility] and left a message for value analysis coordinator. Per Elizabeth from [facility] , they arent accepting patients health insurance plan at this time, they are renegotiating their contract with health insurance plan, unable to accept referral. I called and spoke with Lizeth from [facility] , their company was previously named [employer], she reported they dont serve the [facility], they only serve [facility] [place], unable to accept referral.
[2018-04-14] MEDS ORDERED: SODIUM FERRIC GLUCONATE 125 MG in NACL 0.9% 100 ML IV SCH (15:00)
--- NOTE | 2018-04-14 15:10 | NUR ---
Title Insurance Agent Note: I faxed inquiry to [facility], phone number , fax . Per Brenda from [facility], they can accept patient and they will send a nurse to patient's home this weekend, she obtained authorization from major case detective at [facility]. I informed patient's nurse [facility] services have been arranged
--- NOTE | 2018-04-14 15:20 | NUR ---
PHYSICAL THERAPY CO-SIGN The Physical Therapy Progress Notes documented by Strip Deburrer have been reviewed. I CONCUR W/PROGRAM LEAD NOTE; Pt WILL BENEFIT TO CONT W/PT Reviewed/Co-Signed by: Alexia Carballo, PT Documentation Done by: LESTER VYAS PTA Addendum: 04/14/18 at 1520 by Alexia Carballo PT Amended: Links added.
--- NOTE | 2018-04-14 15:34 | NUR ---
SPOKE WITH NEW AT [facility] AND INFORMED HER THAT PATIENT WILL HAVE [facility].
--- NOTE | 2018-04-14 15:39 | NUR ---
04/14/18 RD INITIAL ASSESSMENT COMPLETED PLEASE REFER TO NUTRITION ASSESSMENT UNDER CARE ACTIVITY FOR ESTIMATED NUTRITIONAL NEEDS. 1. CONTINUE BRAT DIET TOLERATED WITH ENSURE CLEAR BID 2. RD TO FOLLOW-UP 3-5 DAYS, MODERATE RISK LUIS HODGE RD
--- NOTE | 2018-04-14 16:00 | NUR ---
DISCHARGE INSTRUCTION AND RX GIVEN AND EXPLAINED TO PT AND DAUGHTER, THEY VERBALIZED FULL UNERSTANDING, IV DC'D X2, CATH TIP INTACT, BLEEDING CONTROLLED, PT MARK WELL, PT UP IN CHAIR WITH MINIMAL ASSIST, DC HOME NOW WITH DAUGHTER, [facility] INFO PROVIDED TO DAUGHTER.
[2018-04-14] MEDS ORDERED: ONDA4TAB PO (18:40)
== END 2018-04-14 16:15 | disposition home health service (06) | DRG 391 ==
LOC: MED 16:28 → MTU 18:55
PROVIDERS: ADMIT General Practice; ATTEND General Practice
PROC: 5A09357 Assistance with Respiratory Ventilation, Less than 24 Consecutive Hours, Continuous Positive Airway Pressure (ICD-10-PCS; principal; 2018-04-11)
DX: A08.4 Viral intestinal infection, unspecified (principal); J96.00 Acute respiratory failure, unspecified whether with hypoxia or hypercapnia; E87.1 Hypo-osmolality and hyponatremia; J45.901 Unspecified asthma with (acute) exacerbation; E83.51 Hypocalcemia; E03.9 Hypothyroidism, unspecified; E78.5 Hyperlipidemia, unspecified; Z88.5 Allergy status to narcotic agent; I11.0 Hypertensive heart disease with heart failure; K21.9 Gastro-esophageal reflux disease without esophagitis; E87.8 Other disorders of electrolyte and fluid balance, not elsewhere classified; D50.9 Iron deficiency anemia, unspecified; G40.909 Epilepsy, unspecified, not intractable, without status epilepticus; E66.9 Obesity, unspecified; Z68.34 Body mass index [BMI] 34.0-34.9, adult; N28.1 Cyst of kidney, acquired; K57.90 Diverticulosis of intestine, part unspecified, without perforation or abscess without bleeding; M47.896 Other spondylosis, lumbar region; R16.0 Hepatomegaly, not elsewhere classified; Z86.011 Personal history of benign neoplasm of the brain
CPT/HCPCS: 36415; 71045; 74018; 80048; 80053; 81003; 82150; 82272; 82607; 82728; 82746; 83036; 83540; 83605; 83690; 83735; 83880; 83930; 84100; 84134; 84436; 84439; 84443; 84479; 84484; 85025; 85045; 85610; 85730; 87040; 87045; 87081; 89055; 93005; 94640; 94660; 96361; 96374; 97110; 97116; 97530; 99285; J1885; J1940; J1956; J2405; J2916; J3490; J7030; J7620; Q9967

== ENCOUNTER 2019-09-09 05:27 | Emergency (ER) | payer OTHER ==
[~2019-09-09] VITALS: Ht 152.4 cm; Wt 81.6 kg
[~2019-09-09 05:27] MED LIST changes: +ACET-8386 PO; -ATEN50TA2 PO; +LACT10CA1 PO; +LEVO250T2 PO; +MECL-322 PO; +ONDA4TAB PO; +[UNRECOGNIZED DRUG - CODE] PO
[2019-09-09 05:35] VITALS: BP 152/61
[2019-09-09 07:54] LABS: ANION GAP 12.8 (8-16); CARBON DIOXIDE 29.1 mmol/L (21-32); CHLORIDE 103 mmol/L (98-107); CREATININE 1.1 mg/dL (0.6-1.3); GLUCOSE 82 mg/dL (74-106); POTASSIUM 3.9 mmol/L (3.5-5.1); SODIUM SERUM 141 mmol/L (136-145); UREA NITROGEN, BLOOD 33 mg/dL (7-18)
[2019-09-09 08:02] LABS: BASOPHILS % (AUTO) 0.6 % (0.0-2.0); EOSINOPHILS # (AUTO) 0.2 K/uL (0-0.4); EOSINOPHILS % (AUTO) 4.5 % (0.0-4.0); HEMATOCRIT 33.7 % (36-48); HEMOGLOBIN 11.2 g/dL (12.0-16.0); LYMPHOCYTES % (AUTO) 18.2 % (20.5-51.1); MEAN CORPUSCULAR HEMOGLOBIN 32 pg (27-31); MEAN CORPUSCULAR HGB CONC 33 g/dL (33-37); MEAN CORPUSCULAR VOLUME 94.8 fL (80-94); MONOCYTES # (AUTO) 0.9 K/uL (0.8-1.0); MONOCYTES % (AUTO) 15.8 % (1.7-9.3); NEUTROPHILS # (AUTO) 3.4 K/uL (1.8-7.7); NEUTROPHILS % (AUTO) 60.9 % (42.2-75.2); PLATELET COUNT (AUTO) 197 K/uL (140-450); RED BLOOD CELL COUNT(AUTO) 3.56 MIL/uL (4.20-5.40); RED CELL DISTRIBUTION WIDTH 14.1 % (11.6-13.7); WHITE BLOOD COUNT (AUTO) 5.5 K/uL (4.8-10.8)
[2019-09-09] MEDS: LOPERAMIDE 2 MG CAP PO ONE (09:01)
[2019-09-09] MEDS: MECLIZINE 25 MG TAB PO ONE (09:02)
[2019-09-09] MEDS: ONDANSETRON 4 MG ODT PO ONE (09:02)
[2019-09-09 09:20] LABS: APPEARANCE,URINE CLEAR (CLEAR); BILIRUBIN,URINE NEGATIVE (NEGATIVE); BLOOD, URINE NEGATIVE (NEGATIVE); COLOR,URINE YELLOW (YELLOW); LEUKOCYTE ESTERASE ,URINE TRACE (NEGATIVE); NITRITE, URINE NEGATIVE (NEGATIVE); PH,URINE 5.5 (5.0-9.0); UGLUCOSE NEGATIVE (NEGATIVE)
[2019-09-09 09:23] LABS: RBC,URINE 0-5 /HPF (0-5); WBC,URINE 0-5 /HPF (0-5)
[2019-09-09 09:53] VITALS: BP 107/54
== END 2019-09-09 09:45 | disposition home or self-care (01) ==
LOC: MED 05:27
DX: A08.4 Viral intestinal infection, unspecified (principal); K21.9 Gastro-esophageal reflux disease without esophagitis; I11.0 Hypertensive heart disease with heart failure; I50.9 Heart failure, unspecified; Z88.6 Allergy status to analgesic agent; Z79.82 Long term (current) use of aspirin; Z79.899 Other long term (current) drug therapy
CPT/HCPCS: 36415; 80048; 81001; 85025; 99284; J8597; Q0162

== ENCOUNTER 2019-10-06 02:00 | Emergency (ER) | payer OTHER ==
[~2019-10-06] VITALS: Ht 152.4 cm; Wt 81.6 kg
[2019-10-06 02:12] VITALS: BP 139/74
--- NOTE | 2019-10-06 02:12 | NUR ---
TO BED # 01 VIA WHEELCHAIR
--- NOTE | 2019-10-06 02:30 | NUR ---
PT WHEELCHIARED TO BED #11
--- NOTE | 2019-10-06 02:35 | NUR ---
ASSESSMENT COMPLETE. PT SEATED UPRIGHT IN BED. BEDRAIL X1 UP. FAMILY AT BEDSIDE. WILL CONTINUE TO MONITOR.
--- NOTE | 2019-10-06 04:15 | NUR ---
DR. FERGUSON AT BEDSIDE EVALUATING PT.
[2019-10-06] MEDS ORDERED: ALBUTEROL 0.083% 2.5 MG/3 ML NEBU INH ONE (04:20)
[2019-10-06] MEDS ORDERED: MAG SULF 2000 MG/WATER PREMIX 50 ML IV ONE (04:20)
[2019-10-06] MEDS ORDERED: DEXAMETHASONE 10 MG/ML VIAL IVP ONE (04:20)
[2019-10-06] MEDS ORDERED: NACL 0.9% 500 ML IV ONE (04:20)
--- NOTE | 2019-10-06 04:40 | NUR ---
PT HOB ELEVATED TO AID LUNG EXPANSION. RR EVEN AND UNLABORED. O2 SAT MAINTAINED AT 99% RA
[2019-10-06 05:01] LABS: APPEARANCE,URINE CLEAR (CLEAR); BILIRUBIN,URINE NEGATIVE (NEGATIVE); BLOOD, URINE NEGATIVE (NEGATIVE); COLOR,URINE YELLOW (YELLOW); LEUKOCYTE ESTERASE ,URINE TRACE (NEGATIVE); NITRITE, URINE NEGATIVE (NEGATIVE); UGLUCOSE NEGATIVE (NEGATIVE)
[2019-10-06 05:09] LABS: RBC,URINE 0-5 /HPF (0-5); WBC,URINE 0-5 /HPF (0-5)
[2019-10-06 05:27] LABS: BASOPHILS % (AUTO) 0.4 % (0.0-2.0); EOSINOPHILS # (AUTO) 0.2 K/uL (0-0.4); EOSINOPHILS % (AUTO) 1.7 % (0.0-4.0); HEMATOCRIT 32.3 % (36-48); HEMOGLOBIN 10.9 g/dL (12.0-16.0); LYMPHOCYTES # (AUTO) 1.5 K/uL (2.5-16.5); LYMPHOCYTES % (AUTO) 15.6 % (20.5-51.1); MEAN CORPUSCULAR HEMOGLOBIN 32 pg (27-31); MEAN CORPUSCULAR HGB CONC 34 g/dL (33-37); MEAN CORPUSCULAR VOLUME 94.9 fL (80-94); MONOCYTES # (AUTO) 1.1 K/uL (0.8-1.0); MONOCYTES % (AUTO) 11.7 % (1.7-9.3); NEUTROPHILS # (AUTO) 6.8 K/uL (1.8-7.7); NEUTROPHILS % (AUTO) 70.6 % (42.2-75.2); PLATELET COUNT (AUTO) 196 K/uL (140-450); RED CELL DISTRIBUTION WIDTH 13.9 % (11.6-13.7); WHITE BLOOD COUNT (AUTO) 9.7 K/uL (4.8-10.8)
[2019-10-06 05:29] LABS: ANION GAP 12.4 (8-16); CARBON DIOXIDE 28.2 mmol/L (21-32); CHLORIDE 104 mmol/L (98-107); CREATININE 1.4 mg/dL (0.6-1.3); GLUCOSE 94 mg/dL (74-106); POTASSIUM 4.6 mmol/L (3.5-5.1); SODIUM SERUM 140 mmol/L (136-145); UREA NITROGEN, BLOOD 45 mg/dL (7-18)
[2019-10-06 05:34] LABS: ALBUMIN 3.9 g/dL (3.4-5.0); ASPARTATE AMINOTRANSFERASE 17 U/L (15-37); TOTAL BILIRUBIN 0.4 mg/dL (0.0-1.0)
--- NOTE | 2019-10-06 06:10 | NUR ---
PT VSS. HOB ELEVATED. O2 SAT 95% RA. EYES CLOSED, VISIBLE CHEST RISE AND FALL NOTED. FAMILY AT BEDSIDE.
--- NOTE | 2019-10-06 06:30 | NUR ---
PT O2 SATURATION DROPPED AND MAINTAINED AT 88%RA. PT PLACED ON 2L O2 VIA NASAL CANNULA. O2 SAT AT 99%.
--- NOTE | 2019-10-06 07:15 | NUR ---
BEDSIDE REPORT GIVEN TO DONALD BAR. TRANSFER OF CARE AT THIS TIME.
--- NOTE | 2019-10-06 07:18 | NUR ---
PT STATES SHE IS FEELING BETTER, NEEDS TO COUGH. PT REPOSITIONED IN BED, ABLE TO COUGH PRODUCTIVELY.
[2019-10-06 09:06] VITALS: BP 130/59
--- NOTE | 2019-10-06 09:07 | NUR ---
Patient discharged with v/s stable. Written and verbal after care instructions given and explained. Patient alert, oriented and verbalized understanding of instructions. Ambulatory with steady gait. All questions addressed prior to discharge. ID band removed. Patient advised to follow up with PMD. Rx of PREDNISONE, ALBUTEROL SUFLATE, NAPROSYN, MINIELITE STANDARD COMPRESSOR NEBULIZOR given. Patient educated on indication of medication including possible reaction and side effects. Opportunity to ask questions provided and answered.
--- NOTE | 2019-10-08 11:13 | NUR ---
Late entry. Confirmed with RN that Mag IV completed at 0719
== END 2019-10-06 09:07 | disposition home or self-care (01) ==
LOC: MED 02:00
DX: J44.9 Chronic obstructive pulmonary disease, unspecified (principal); I11.0 Hypertensive heart disease with heart failure; I50.9 Heart failure, unspecified; K21.9 Gastro-esophageal reflux disease without esophagitis; Z79.82 Long term (current) use of aspirin; Z79.899 Other long term (current) drug therapy; Z88.5 Allergy status to narcotic agent
CPT/HCPCS: 36415; 36600; 71045; 80053; 81001; 82803; 84484; 85025; 87040; 93005; 94640; 96365; 96366; 96375; 99284; J1100; J3475; J7613; Q0092